=== PATIENT | female | born 1985 | race Caucasian/White ===

== ENCOUNTER 2024-11-11 20:53 | Emergency (ER) | payer OTHER, SELFPAY ==
[2024-11-11 20:56] VITALS: BP 151/94
--- NOTE | 2024-11-12 00:48 | ED.GENMED ---
History of Present Illness
General
Chief Complaint: Catheter/Tube Problem
Source: patient
Exam Limitations: none
Time Seen by Provider: 11/12/24 00:25
Nursing documentation reviewed up to this point in time: agreed with
History of Present Illness
History of Present Illness:
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
Past History
Past History
ED Past Medical History: Cancer
ED Past Surgical History: Bowel resection
Social History
Tobacco: Non-smoker
Alcohol: None
Drug: None
Living: with family
Employment: Employed
Review of Systems
Review of Systems
All Other Systems: Not applicable
Phy Exam
Physical Exam
Physical Exam:
Physical Exam
General: no apparent distress, not acutely ill
Neck: No jaundice
Lungs: no acute respiratory distress.
Abdomen: Stoma in the right lower abdomen
Neuro: alert and oriented. no focal neurological deficits
Skin: no rash
Psychiatric: well kept. interactive and cooperative
Extremities: no edema.
Course
Vital Signs
Initial and Last Documented VS:
Initial Vital Signs
Temp Pulse Resp BP Pulse Ox
98.1 F 91 16 151/94 100
11/11/24 20:56 11/11/24 20:56 11/11/24 20:56 11/11/24 20:56 11/11/24 20:56
Last Documented Vital Signs
Temp Pulse Resp BP Pulse Ox
98.1 F 91 16 151/94 100
11/11/24 20:56 11/11/24 20:56 11/11/24 20:56 11/11/24 20:56 11/12/24 00:49
MDM/Problems Addressed
Differential Diagnosis Includes:
Ran out of ostomy supplies
MDM/Problems Addressed:
Ostomy supplies
Chronic conditions affecting care: Previous abdomnial surgery
Acute Exacerbation and/or Progression of Chronic Illness: Previous abdomnial surgery
*Pulse Oximetry
SaO2: 100
Oxygen Mode of Delivery: Room air
Patient hypoxic: no
*Critical Care Note
Total Time (30-74mins, 75-104mins- exclusive of procedures): Not Applicable
Update Note
Update Note:
Will ask RN to help with ostomy teaching and supplies
ED Attending Note
-
Portions of this chart may have been created with voice recognition software.� Occasional wrong word or��sound alike� substitutions may have occurred due to the inherent limitations of voice recognition software.
Discharge Plan
Departure
Patient Disposition: Home (Routine Discharge)
Date of Disposition: 11/12/24
Time of Disposition: 00:37
Patient with high blood pressure during this ER visit?: No
Condition: Good
Discharge Problem:
Complication of ostomy
Referrals:
PRIVATE,PHYSICIAN [Family Provider, Internal Medicine]
Interventions
Interventions:
*Risk Screen - Suicide Last Done: 11/11/24 23:25
*General Assessment Last Done: 11/11/24 23:25
*Neglect/Abuse Screening Last Done: 11/11/24 23:25
*ED- Fall Risk Assessment Last Done: 11/11/24 23:25
*ED COVID-19 Vaccine History Last Done: 11/11/24 23:25
TQ-Csqnfy-Zzevvxrjfl Assessment Last Done: 11/11/24 23:25
Discharge Date and Time
Print Language: MARSHALLESE
[2024-11-12 01:18] VITALS: BP 134/76
== END 2024-11-12 01:15 | disposition home or self-care (01) ==
LOC: EMR 20:53
PROVIDERS: EMERGENCY PHYSICIAN Emergency Medicine
DX: Z43.3 Encounter for attention to colostomy (principal); C18.9 Malignant neoplasm of colon, unspecified; Z90.49 Acquired absence of other specified parts of digestive tract
CPT/HCPCS: 99281